=== PATIENT | female | born 1945 | race Caucasian/White ===

== ENCOUNTER 2016-11-22 10:41 | Inpatient (IN) | payer MEDICARE, BC ==
[~2016-11-22 10:41] MED LIST: ALBUTEROL SULFAT8 MG; AMBIEN5 M1 PO; AMLOPIDINE PO; ASPIRIN 32325 MG/TAB PO; ATHENOL325 MG PO; CALCIUM500 M1 PO; CLEOCIN HC150 MG/CAP PO; COLACE100 M1 PO; COREG3.125 M1 PO; COZAAR100 MG PO; COZAAR25 M1 PO; FISH OIL 1,2001 EACH PO; JANUVIA100 MG PO; LANTUS100 U/ML; LASIX20 M1 PO; LASIX40 M1 PO; LEVAQUIN 5500 MG/TA1 PO; LEVOTHYROXINE PO; LIPITOR 40MG TA40 MG PO; MAALOX ADVANCE148 ML PO; MIRALAX17 GM PO; MULTI-VITAMIN1 EACH PO; NITROGLYCERIN0.4 M1 SL; NORCO 325 MG-51 TA1 PO; PROTONIX TR40 M1 PO; ZAROXOLYN PO; ZOFRAN4 M2
[2016-11-22 13:13] VITALS: BP 172/81
[2016-11-22 13:37] VITALS: BP 172/81
--- NOTE | 2016-11-22 14:15 | NUR ---
Pt arrives with son and assisted by wheel chair to room 203. Oriented to room and given Swingbed admission packet. Pt alert and oriented. Rates pain 6/10 to left knee "I had to keep it bent the whole ride here" Pt is 1 assist with walker. Slow steady ambulation with walker. Bulky gauze dressing noted to left knee.
--- NOTE | 2016-11-22 14:26 | NUR ---
Dressing to left knee removed. Small amount of dried blood drainage to old dressing. Incision with 27 jeanine intact. Edges well approximated. Incision with 2 lidoderm patches to sides of incision. Pt reports these help greatly. Incision re covered with airstrip. Pt tolerates well.
--- NOTE | 2016-11-22 14:28 | NUR ---
J Angel Luis in to see pt at this time
[2016-11-22] MEDS ORDERED: FEROSUL325 M1 PO (14:47)
[2016-11-22] MEDS ORDERED: AMARYL1 M1 PO (14:51)
[2016-11-22] MEDS ORDERED: COZAAR25 M1 PO (14:51)
[2016-11-22] MEDS ORDERED: MAGNESIUM250 M1 PO (14:56)
--- NOTE | 2016-11-22 16:46 | NUR ---
Pt reports pain has went up despite [place] being on board and ice applied to knee. Pt requesting another pain pill. Pt has had car ride to hospital and worked with PT which she attributes to the extra pain. Gay MOTA notified and new order received.
[2016-11-22 18:19] VITALS: BP 140/60
[2016-11-22 18:50] VITALS: BP 140/60
--- NOTE | 2016-11-22 19:45 | NUR ---
Report received from Renetta DUNN. Patient rests in recliner with eyes closed. Awaken easily for assessment. States, oh that pain medicine put me asleep. States she isn't in pain but rates paiin 5/10. Pain scale explained to patient then rates 4/10. "it's not a 3." Denies need for a pain pill at this time. Legs elevated in recliner. DIANNA hose in place to BLE. Air strip intact with spotted drainage noted. Assessment compeleted. Call light in place.
--- NOTE | 2016-11-22 21:45 | NUR ---
Scheduled HS medications taken, PRN [place] given for L knee pain. Refused scheduled Ambien. States she has not been taking it at [place], and has been sleeping fine without it but wants it when she goes back home. Assisted to BR and with HS cares by GYROSCOPE REPAIRER. Skin inspected. Has fine, red area to lower back where she scratched, with one pin-point drop of blood, lotion applied. Also note large hemorrhoids to anal area, no bleeding noted. Assisted back to bed with weight rechecked per day nurse request and noted to be correct as to what day GYROSCOPE REPAIRER got. Assisted to recliner as patient prefers to sleep there. Pressure pad alarm in place. Call light in reach. Blood Sugar 190. Patient did have 1/2 package of sugarfree cookies prior to blood sugar being taken.
--- NOTE | 2016-11-23 01:35 | NUR ---
Marianne 7.5/325 1 tab given for L knee pain 05/26. Ice off at this time per request. Denies further wants or needs.
--- NOTE | 2016-11-23 04:06 | NUR ---
Awakens. Pain level back up to 7/10 to L knee. States the DIANNA hose is causing pain to be worse. Too early for analgesic. Utilziing ice bag. DIANNA hose remove from L leg at this time.
[2016-11-23 06:22] VITALS: BP 146/66
--- NOTE | 2016-11-23 06:30 | NUR ---
Scheduled AM medications and PRN [place] taken. Pain level 4-5/10. States pain better after DIANNA hose removed from surgical leg. Rests in recliner, denies wants or needs.
--- NOTE | 2016-11-23 07:17 | NUR ---
Report to Lisa DUNN
--- NOTE | 2016-11-23 07:20 | NUR ---
REPORT RECEIVED FROM ANDRE DUNN.
--- NOTE | 2016-11-23 07:20 | NUR ---
REPORT RECEIVED FROM CARISSA CASTELLON LPN
--- NOTE | 2016-11-23 07:34 | NUR ---
IV FLUIDS DISCONTINUED AT THIS TIME PER PHONE ORDER FROM DR WEEKS.
--- NOTE | 2016-11-23 07:40 | NUR ---
PATIENT AWAKE IN BED. REPORTS THAT SHE FEELS HUNGRY. SHE WOULD LIKE TO ADVANCE HER DIET. WILL TALK TO DR WEEKS ABOUT THIS SHE STILL FEELS NAUSEOUS IF SITTING UPRIGHT OR UP WALKING. INT INTACT TO LT HAND; APPEARS NORMAL. SHE DOES REPORT HEAD DISCOMFORT AT 2/10 TO RT FRONT OF HEAD. THIS RADIATES TO BACK RT OF HEAD INTERMITTENTLY. SHE DOES REPORT THAT HEAD PAIN AND DIZZINESS IS IMPROVED SINCE LAST NIGHT. CALL LIGHT IN REACH.
--- NOTE | 2016-11-23 08:00 | NUR ---
PATIENT UP TO RECLINER WITH LEGS ELEVATED. SHIFT ASSESSMENT COMPLETE. ALERT AND ORIENTED X4. REPORTS BEING TIRED THIS MORNING. STATES "NIGHT WAS OKAY, I DIDN'T SLEEP FOR A FEW HOURS" RATES PAIN 5/10 IN LEFT KNEE. PATIENT HAS AIRSTRIP TO LEFT KNEE WITH LIDOCAIN PATCH TO BOTH SIDES. NO REDNESS TO SKIN SURROUNDING DRESSING. PATIENT HAS SCAB TO LEFT JOHNSON. PATIENT REPORTS SCAB WAS THERE PRIOR TO SURGERY. PATIENT HAS REDNESS TO LEFT BACK OF CALF WITH SMALL AREA TO LEFT JOHNSON SURROUNDING SCAB. NO WARMTH TO AREA WITH PALPATION. PATIENT STATES "THAT'S A CHRONIC THING THE DOCTOR TOLD ME IT WOULD NEVER GO AWAY ITS FROM THE SWELLING" NO PAIN TO AREA. +2 PITTING EDEMA TO BILAT LOWER EXT. PATIENT HAS THIGH HIGH DIANNA HOSE IN PLACE TO RIGHT LOWER EXT. PATIENT REPORTS DIANNA HOSE ON LEFT LEG WAS CAUSING PAIN SO THEY TOOK IT OFF. PATIENT REPORTS LAST BOWEL MOVEMENT WAS 11/19/16 PRIOR TO SURGERY. REPORTS PASSING FLATUS. WHEN ASKED IF PATIENT WAS EXPERIENCING SHORTNESS OF BREATH STATES "NOT REALLY" WHEN ASKED TO EXPLAIN STATES "WELL I WAS HAVING SOME PHLEGM AND CONGESTION BUT IT'S GETTING BETTER" REPORTS THAT IT WAS WORSE AT NIGHT TIME BUT THAT IT'S IMPROVED. PATIENT'S CALL LIGHT WITHIN REACH. CHAIR ALARM ON.
--- NOTE | 2016-11-23 08:00 | NUR ---
PATIENT UP TO RECLINER WITH LEGS ELEVATED. SHIFT ASSESSMENT COMPLETE. ALERT AND ORIENTED X4. REPORTS BEING TIRED THIS MORNING. STATES "NIGHT WAS OKAY, I DIDN'T SLEEP FOR A FEW HOURS" RATES PAIN 5/10 IN LEFT KNEE. PATIENT HAS AIRSTRIP TO LEFT KNEE WITH LIDOCAIN PATCH TO BOTH SIDES. NO REDNESS TO SKIN SURROUNDING DRESSING. PATIENT HAS SCAB TO LEFT JOHNSON. PATIENT REPORTS SCAB WAS THERE PRIOR TO SURGERY. BELOW SCABBED AREA TO LEFT JOHNSON PATIENT HAS SMALL RAISED AREA APPROXIMATELY 0.25 CM X 0.25 CM. COLOR OF SKIN SURROUDING SCABS DARKER. PATIENT HAS REDNESS TO LEFT BACK OF CALF WITH SMALL AREA TO LEFT JOHNSON SURROUNDING SCAB. NO WARMTH TO AREA WITH PALPATION. PATIENT STATES "THAT'S A CHRONIC THING THE DOCTOR TOLD ME IT WOULD NEVER GO AWAY ITS FROM THE SWELLING" NO PAIN TO AREA.+2 PITTING EDEMA TO BILAT LOWER EXT. PATIENT HAS THIGH HIGH DIANNA HOSE IN PLACE TO RIGHT LOWER EXT. PATIENT REPORTS DIANNA HOSE ON LEFT LEG WAS CAUSING PAIN SO THEY TOOK IT OFF. PATIENT REPORTS LAST BOWEL MOVEMENT WAS 11/19/16 PRIOR TO SURGERY. REPORTS PASSING FLATUS. WHEN ASKED IF PATIENT WAS EXPERIENCING SHORTNESS OF BREATH STATES "NOT REALLY" WHEN ASKED TO EXPLAIN STATES "WELL I WAS HAVING SOME PHLEGM AND CONGESTION BUT IT'S GETTING BETTER" REPORTS THAT IT WAS WORSE AT NIGHT TIME BUT THAT IT'S IMPROVED. PATIENT'S CALL LIGHT WITHIN REACH. CHAIR ALARM ON.
--- NOTE | 2016-11-23 11:00 | NUR ---
PATIENT'S DRESSING TO LEFT KNEE AT THIS TIME. SCANT AMOUNT OF DRIED BLOOD TO OLD DRESSING. INCISION EDGES WELL APPROXIMATED. ROEL INTACT. INCISION FREE FROM SIGNS OF INFECTION AT THIS TIME. INICISION CLEANSED. SKIN PREP APPLIED. CLEAN AIRSTRIP APPLIED TO INCISION WITH LIDOCAIN PATCH TO EACH SIDE OF INCISION. PATIENT'S LEGS ELEVATED IN RECLINER. CALL LIGHT WITHIN REACH. CHAIR ALARM ON.
[2016-11-23 18:30] VITALS: BP 142/58
--- NOTE | 2016-11-23 19:20 | NUR ---
report given to kathi terrellrn
[2016-11-24 06:21] VITALS: BP 171/79
--- NOTE | 2016-11-24 07:20 | NUR ---
REPORT RECEIVED FROM Gay STORYRN
--- NOTE | 2016-11-24 08:00 | NUR ---
patient's shift assessment complete. patient up to recliner. reports having pain rated 6/10 to left knee. reported that patient did not sleep well last night. patient's last bowel movement 1/3. abdomen firm and non tender upon palpation. per patient's report passing flatus. patient's airstrip to left knee small amount of drainage noted to dressing. patient's bilat lower ext +2 pitting edema. left more edematous than right. scabs to left lopez. skin below scabs has raised area that appears to be filled with dark yellow serous colored fluid. area larger than yesterday, approximately 0.5 cm x 1 cm. surrounding skin continues to be darker in color. skin to left lower ext pink this morning continues to have redened area to back of calf. patient's call light within reach.
--- NOTE | 2016-11-24 08:00 | NUR ---
patient's shift assessment complete. patient up to recliner. reports having pain rated 6/10 to left knee. reported that patient did not sleep well last night. patient's last bowel movement 1/3. abdomen firm and non tender upon palpation. per patient's report passing flatus. patient's airstrip to left knee small amount of drainage noted to dressing. patient's bilat lower ext +2 pitting edema. left more edematous than right. scabs to left lopez. skin below scabs has raised area that appears to be filled with dark yellow serous colored fluid. area larger than yesterday, approximately 0.5 cm x 1 cm. surrounding skin continues to be darker in color. skin from around ankle to knee appears to be slightly more reddened than when this nurse cared for patient yesterday. area does not feel warmer than surrounding skin. continues to have redened area to back of calf, unchanged from previous assessment. patient's call light within reach.
--- NOTE | 2016-11-24 16:00 | NUR ---
patient asked to ambulate in [place]. patient walks to room doorway with walker. standby assist of 1 required. AUTO BODY REPAIRER asked patient if she would walk further and go to nurses station and back as she has been doing in previous walks. patient refused. states "i already walked in the [place] earlier, i will walk later tonight before bedtime it helps me sleep"
--- NOTE | 2016-11-24 17:22 | NUR ---
dr. horn at patient's bedside to look at left lower ext. this nurse in room. aspirated scant amount of bright blood tinged drainage from fluid filled raised area to left lopez. wound culture sent to lab. area covered with gauze and carloz wrap applied to left lower ext by . instructed patient to ambulate in halls more frequently with staff. patient agreeable.
[2016-11-24 18:30] VITALS: BP 163/64
--- NOTE | 2016-11-24 19:23 | NUR ---
report given to kathi terrellrn
[2016-11-25 06:55] VITALS: BP 161/78
--- NOTE | 2016-11-25 07:10 | NUR ---
REPORT RECEIVED FROM Gay STORYRN
--- NOTE | 2016-11-25 08:00 | NUR ---
PATIENT'S SHIFT ASSESSMENT COMPLETE. PATIENT ALERT AND ORIENTED X4. REPORTS HAVING PAIN RATED 8/10 IN LEFT KNEE. REQUESTED PRN PAIN MEDICATION. REPORTS LEG FEELS "MORE STIFF" TODAY. PATIENT HAS GAUZE TO LEFT JOHNSON ABRASION WITH LEG WRAPPED TO LEFT KNEE WITH ROSELYN WRAP. AIRSTRIP TO LEFT KNEE HAS SMALL AMOUNT OF DRAINAGE ON IT. ROSELYN WRAP REMOVED FROM LEFT LOWER EXT TO ASSESS SKIN. SCABBED AREA TO LEFT JOHNSON WITH BLISTER BELOW IT UNCHANGED FROM YESTERDAY. IMMEDIATE SURROUNDING SKIN APPEARS TO BE A DARKER RED THAN YESTERDAY BUT IS NOT INCREASED IN SIZE FROM YESTERDAY. SKIN FROM AROUND ANKLE TO KNEE DARKER RED THAN YESTERDAY AND IS WARM TO TOUCH WITH SKIN FROM KNEE TO MID THIGH MORE PINK COLORED. GAUZE IN PLACE TO JOHNSON AND LEG ROSELYN WRAP REAPPLIED. PATIENT'S CALL LIGHT WITHIN REACH. CHAIR ALARM ON.
--- NOTE | 2016-11-25 08:00 | NUR ---
PATIENT'S SHIFT ASSESSMENT COMPLETE. PATIENT ALERT AND ORIENTED X4. REPORTS HAVING PAIN RATED 8/10 IN LEFT KNEE. REQUESTED PRN PAIN MEDICATION. REPORTS LEG FEELS "MORE STIFF" TODAY. PATIENT HAS GAUZE TO LEFT JOHNSON ABRASION WITH LEG WRAPPED TO LEFT KNEE WITH ROSELYN WRAP. AIRSTRIP TO LEFT KNEE HAS SMALL AMOUNT OF DRAINAGE ON IT. ROSELYN WRAP REMOVED FROM LEFT LOWER EXT TO ASSESS SKIN. SCABBED AREA TO LEFT JOHNSON WITH BLISTER BELOW IT UNCHANGED FROM YESTERDAY. IMMEDIATE SURROUNDING SKIN APPEARS TO BE A DARKER RED THAN YESTERDAY BUT IS NOT INCREASED IN SIZE FROM YESTERDAY. SKIN FROM AROUND ANKLE TO KNEE DARKER RED THAN YESTERDAY AND IS WARM TO TOUCH WITH SKIN FROM KNEE TO MID THIGH MORE PINK COLORED. GAUZE IN PLACE TO JOHNSON AND LEG ROSELYN WRAP REAPPLIED. NOTED SWELLING TO BILAT LOWER EXT APPEARS TO BE SLIGHTLY DECREASED FROM YESTERDAY. PATIENT EDUCATEED PATIENT REFUSED ICE TO LEG. PATIENT'S CALL LIGHT WITHIN REACH. CHAIR ALARM ON.
--- NOTE | 2016-11-25 09:20 | NUR ---
PABLO IBANEZ APRN IN TO SEE PATIENT AND LOOK AT LEFT LEG. PLAN IS FOR PATIENT TO START ON KEFLEX ORAL. WILL CONTINUE TO MONITOR.
--- NOTE | 2016-11-25 10:30 | NUR ---
PHYSICAL THERAPY VOICES CONCERN ABOUT PATIENT'S LEFT LEG BEING STIFFER THAN IT WAS ON FRIDAY AND HER DECREASE IN ABILITY TO MOVE LEG. GUI SHAH NOTIFIED AND ULTRA SOUND OF EXT FOR DVT ORDERED. WILL CONTINUE TO MONITOR.
[2016-11-25 18:25] VITALS: BP 163/68
--- NOTE | 2016-11-25 19:30 | NUR ---
REPORT GIVEN TO Johnathan BENTLEY RN
--- NOTE | 2016-11-25 19:50 | NUR ---
Shift assessment documented and completed at this time. Pt SBA to BR. voided, no BM; is passing gas. Pt rates pain 5/10 aching to LLE, denies need for medication. Airstrip C/D/I. Pt states abdomen is becoming more uncomfortable. Discussed medication options. R buttock blister; mepilex applied and cushion to chair for comfort and protection from breakdown. LLE red, warm, wrapped with ROSELYN. Pulses palpable. Wesley hose on RLE. Pt returned to chair with BLE elevated. Chair locked, call light within reach. No further needs at this time.
[2016-11-26 06:16] VITALS: BP 149/69
--- NOTE | 2016-11-26 07:15 | NUR ---
report from Lisa Asif RN
--- NOTE | 2016-11-26 09:32 | NUR ---
awake, alert, up in chair at bedside, describes pain 3/10 but does not want pain medication, encouraged flexion/extension of all joints, ice pack applied to surgical site, this area remains very warm to touch, reddened, and edematous, jakob to right leg,
--- NOTE | 2016-11-26 14:17 | NUR ---
at approx 1330 patient described feeling short of breath and gernerally not feeling well, refusing therapy, oral temp 97.0, spo2 97% on room air, there is good aeration noted with auscultation, she then requests adding a laxative and we discussed her not wanting this ams dose of Miralax, I told her we can give the Miralax and I would notifiy the provider of her c/o, this is done and Gay Hein PA-c is currently at patients bedside.
--- NOTE | 2016-11-26 14:45 | NUR ---
patient is given an additional dose of Miralax and Lasix per order, sheis placed in a gown, her bra is removed and she is readied for an x-ray, lab at bedside
--- NOTE | 2016-11-26 15:21 | NUR ---
to x-ray per w/c
--- NOTE | 2016-11-26 15:29 | NUR ---
returns to room per w/c from x-ray
--- NOTE | 2016-11-26 15:49 | NUR ---
provider visits with patient about lab/x-ray results
--- NOTE | 2016-11-26 16:07 | NUR ---
Pt is in bed, not feeling well. She has not had a good BM since she came to [facility], pt has been refusing stool softeners and on this date provider speaks to her explaining that she must not refuse the laxatives that are now ordered or she will have an emergent problem, pt verbalizes understanding. Juliet Duque, RN, Pt Navigator for [facility] visits pt and goes over pt discharge plans. Pt anticipates returning to home on 12-02-16. She has an appointment w/ Dr Moncada on 12-02-16 @ 2:00 for which she states that her son Corey will be able to take her home and take her to this appointment. She would appreciate [facility] transportation to Dr Randolph's office, but the bus only runs on the and the . Dr Randolph's office is notified and new appointment given for 12-12-16 @ 1:00, pt to see SVETLANA Chicas at [address] [place] [address] - [phone]. Dr Randolph's nurse Nhi [place] RN gives new order that pt may have jeanine removed on either 11-29 or 11-30 if wound is clean and dry and incision is well approximated. She states that Dr Randolph would rather jeanine be removed in facility prior to her discharge and that they can be removed on either Friday or Fri and steri strips are to be applied afterwards. SVETLANA Hernandez is notified, as is nursing of above information. appointment change requested. If pt cannot get there until the , it is requested of Dr Randolph that [facility] provider be able to remove jeanine prior to her discharge on the , and [facility] will also o
[2016-11-26 18:17] VITALS: BP 143/65
--- NOTE | 2016-11-26 18:50 | NUR ---
report to Coty LANDRUM
--- NOTE | 2016-11-26 19:24 | NUR ---
Report received from Ayala DUNN. Patient sitting up in recliner. A/O x4. Rates pain to L knee 04/26. Ice bag applied. Air strip dressing CDI. Leg remains red, warm below. Legs elevated. Assessement completed. Denies wants or needs. Uses I.S. with COLLISION REPAIR TECHNICIAN's prompting.
--- NOTE | 2016-11-26 20:50 | NUR ---
Scheduled HS medications taken. Wants to wait until closer to bed for Ambien but willing to take tonight.
--- NOTE | 2016-11-26 22:25 | NUR ---
Assisted to BR, voids 300 ML of dark yellow urine, assisted to bed, takes Ambien at this time per request. Denies need for anlagesic. "I made need it once I get settled in, but not right now". Requests and given chelsea amaya, sits on EOB to eat, JIG BORE TOOL MAKER in room with her while she eats. Denies further wants or needs.
--- NOTE | 2016-11-27 00:30 | NUR ---
Awaken for scheduled antibiotic. Takes without difficulty. Denies pain or need for analgesic. Falls back asleep before nurse leaves room.
--- NOTE | 2016-11-27 03:15 | NUR ---
Up to BR with assist. Rates pain to L knee 12/27. Denies need for analgesic. Assisted back to bed. Bed alarm on. Call light in reach.
--- NOTE | 2016-11-27 06:10 | NUR ---
Up in chair. Scheduled AM medications taken. [place] given for pain to L knee 04/26. Rested well all shift. No BM. Weight elevated from yesterday. Bed re-zeroed and rechecked and weighed the same. Denies wants or needs.
[2016-11-27 06:20] VITALS: BP 150/60
--- NOTE | 2016-11-27 07:05 | NUR ---
Report to Mouna DUNN
--- NOTE | 2016-11-27 08:00 | NUR ---
Complex assesment completed at this time, airstrip to left knee, will replace this shift shortly, noted redness to LLE, pt states this is her "norm" and that a previous physician has told her it will be red for the rest of her life, increased edema to BLE and BUE (2+), difficult to find IV placement but after 3 attempts IV was placed in patients right hand by Renetta Sheppard, RN, pt denies increased SOB, refuses lidocaine patches and states they do not help her, further assessment completed, VSS, pt alert and oriented, denies further needs, call light is within reach, and chair alarm on
--- NOTE | 2016-11-27 08:10 | NUR ---
Pt's Potassium elevated to 6.1 today, Iris Hein notified, orders to start and IV we are going to run 1L of NS slowly as well as give an additional dose of IV Lasix with this AM's dose of PO Lasix, due to increased CHF exacerbation and edema, as well as possible kidney disfunction patient may need to transfer back to [place] in the next 1-2 days if we can not get patients labs stabilized, patient notified of these changes this AM and compliant, pt still has not had a BM, took all of her PO meds this AM to assist in this, states she feels if she gets up and moving more today she will have a BM, discussed a possible enema with patient, pt does not disagree but would like more time this AM to achieve a stool without an enema, will continue to monitor I/O and administer new meds as ordered after IV placement
--- NOTE | 2016-11-27 11:02 | NUR ---
Pt states that she has all the equipment she will need at home. She chooses [facility] for recommended services of SN/PT/OT/BathAide for anticipated discharge date on 12-02-16 providing her condition is improved enough for discharge. [facility] is notified of pt need for transportation to see Dr Celso Randolph on 12-12-16 @ 3:20, bus will pick her up at her home at 2:15pm. [facility] is notified of pt choice and HH field representative/health education will come and visit w/ pt re: HH benefits today. Pt is aware and in agreement w/ all of above info.
--- NOTE | 2016-11-27 11:35 | NUR ---
F/U appointment with scheduled for 12/12/16 @ 1520, Donald little will pick pt up at 1415. Pt also has a f/u scheduled with for 12/02/16 @ 1400, pt reports her son will take her to this appointment after DC from hospital
--- NOTE | 2016-11-27 13:11 | NUR ---
and Eze at bedside at this time discussing current health status and increased edema and well as lab results, orders to hold the 1400 dose of Lasix, recheck labs at 1500 as ordered, carloz wrap legs BID for at least 30 minutes or as long as tolerated, and for patient to get in bed while legs are carloz wrapped and significantly elevate legs above the level of the heart, not concerned at this time about transferring patient, will continue to monitor labs and current health status
--- NOTE | 2016-11-27 13:45 | NUR ---
One time dose of Dulcolax PO given at this time per patient request, states this helps her bowels at home, also DC'd scheduled Toradol in hopes to improve renal function, will continue to monitor for a BM throughout this shift, discussing and enema at this time if patient has no results shortly
--- NOTE | 2016-11-27 15:30 | NUR ---
Pt resting in bed, legs elevated, ice applied to left knee, BLE carloz wrapped to help with edema, will leave legs elevated and wrapped until at least 1600 as ordered by , patient comfortable with call light within reach, denies further needs at this time
--- NOTE | 2016-11-27 15:45 | NUR ---
Noted bruising to left outer thigh from surgery, will continue to monitor for increase in bruising and swelling, denies pain at this site
--- NOTE | 2016-11-27 16:39 | NUR ---
Pt offered PRN pain medication at this time again, denies the need, states "my knee feels fine when I rest it", states she will notify staff when she feels the need for pain medication, offered after working with therapy multiple times as well as patient states "No thanks, I will be fine once I rest here for a few minutes.", will continue to offer pain control and manage patients pain to the best of my ability
--- NOTE | 2016-11-27 17:14 | NUR ---
Glucophage DC'd at this time due to low blood sugar levels this shift, also did not give this evenings dose of Glimepiride per Eze, will continue to monitor BG levels, pt states she is unable to eat a lot at mealtime due to constipation, we are going to go on a walk one more time after supper and see if any BM results, if not we will proceed with more aggressive measures
--- NOTE | 2016-11-27 17:38 | NUR ---
Pt up on stool at this times, states she wants to attempt to have a BM at this time and will sit there for a little while, after this she requests 1 more walk to try and get things moving, states she is passing gas now, after the walk she agreed to an enema if no results yet, also she states she is a bit hesitant and would like to avoid it as "this will be a very new experience for me," this nurse educated on the procedure of adminstering an enema and patient seems calm and in agreeance if needed
--- NOTE | 2016-11-27 18:13 | NUR ---
Pt agreeing to milk and molasses enema as verbally ordered by Eze this afternoon at this time, will scan order to pharmacy and prepare enema and administer at this time
[2016-11-27 18:32] VITALS: BP 176/64
[2016-11-28 06:29] VITALS: BP 119/47
--- NOTE | 2016-11-28 07:10 | NUR ---
report from February RN
--- NOTE | 2016-11-28 09:33 | NUR ---
up in chair this am for breakfast, states has moderate amount of pain in left knee and feels she slept wrong last noc, encourqged to position self in a normal position and if it is uncomfortable shift self to help in relieving pain, ice pack applied, ther remains a moderate amount of edema to left leg, both above and below the incision site, she also states her lef will remain red and thisis a very normal appearance for her
--- NOTE | 2016-11-28 11:19 | NUR ---
re-weighed per dietary request 214.5lbs
--- NOTE | 2016-11-28 11:20 | NUR ---
to bed, re-weighed and leg wraps applied, using Elias wrap applied ankle to above knee, both legs are then elevated above level of her heart
--- NOTE | 2016-11-28 12:03 | NUR ---
leg wraps removed and pillows removed, patient takes lunch
--- NOTE | 2016-11-28 14:05 | NUR ---
patients son visits,
--- NOTE | 2016-11-28 15:15 | NUR ---
labs drawn at bedside
--- NOTE | 2016-11-28 15:21 | NUR ---
patient s current iv site shows leaking, site dc'd, there was approx 75ml remaining in NS infusion, this was wasted
[2016-11-28 18:31] VITALS: BP 138/52
--- NOTE | 2016-11-28 19:19 | NUR ---
report to margot DUNN
--- NOTE | 2016-11-28 20:00 | NUR ---
Patient is in bed with legs elevated. She denies needs at this time. call light in reach. Patient states she is at a 4/10 on pain scale and that is tolerable.
--- NOTE | 2016-11-29 00:06 | NUR ---
Patient requested PRN pain medication rating pain 5/10 on pain scale. Stated that her pain is mainly in the lower extremeties and on left lower mostly. Patient has had legs wrapped with carloz bandages and now had them removed. She was up to bathroom with stand by assist with staff. No other needs verbalized at this time. call light in reach.
--- NOTE | 2016-11-29 06:11 | NUR ---
Patient rested throughout night, BRP with stand by assist with staff and patient tolerated well. denies any other needs, call light in reach.
[2016-11-29 06:33] VITALS: BP 188/90
--- NOTE | 2016-11-29 06:55 | NUR ---
Report received from SHAUN High.
--- NOTE | 2016-11-29 07:30 | NUR ---
Assessment completed. Noted redness to left leg that is not new. Patient reports it as chronic after cellulitis in the past. Bruising noted to left forearm and left elbow area from prior IV's and lab draws. Pt reports aching left leg, rating at a 5. Denied a need for pain medication at this time.
--- NOTE | 2016-11-29 07:45 | NUR ---
Iris Hein PA-C in to see patient. Plans to remove some or all jeanine later this afternoon when therapy is completed. Noted decreased swelling and lungs sounds are good.
[2016-11-29] MEDS ORDERED: NORCO 325 MG-7.1 TA1 PO (12:23)
--- NOTE | 2016-11-29 14:08 | NUR ---
Iris Hein PA-C in room. Removed 12 jeanine. Count of 14 remaining. Steri strips applied.
--- NOTE | 2016-11-29 14:28 | NUR ---
Spoke with Iris Hein PA-C. Ok to leave left knee jeanine with steri strips open to air without an airstrip. Rest of jeanine to be removed over the weekend.
--- NOTE | 2016-11-29 16:36 | NUR ---
Pt anticipates discharge to home on 12-02-16. [facility] has pt records and F2F Order. Pt will sign BIPA form on 11-30-16. Pt is agreeable w/ discharge plan.
--- NOTE | 2016-11-29 18:35 | NUR ---
Report given to LUCITA Ansari. Pt resting in chair with left leg elevated on pillow.
[2016-11-29 18:51] VITALS: BP 157/60
--- NOTE | 2016-11-29 21:03 | NUR ---
Report received from Renetta Hennessy RN. Patient sitting up in chair watching TV. A/Ox 4. Rates pain 6/10. Denies need for analgesic. Offered and refuses ice. L knee incision MIN, with 1/2 jeanine removed, steri-strips intact. Uses I.S. with nurse encouragement, pulls 750 ML x10. Takes scheuled HS medications excepept Ambien. Wants it later when goes to bed. Will wrap LLE when goes to bed. Assessment completed. Requests HS snack. Will provide after accucheck. Call light in reach.
--- NOTE | 2016-11-29 22:15 | NUR ---
Patient ready for bed. Mepilex place on abrasion to right buttock for protection, states area is "sore". Assisted to bed and takes Ambien at this time. Continues to deny need for analgesic. L leg wrapped with Elias bandage at this time for 30 minutes per order and leg elevated. Bed alarm on. Call light in reach. Denies wants or needs.
--- NOTE | 2016-11-30 00:41 | NUR ---
Up to BR with assist. Voids 300 ML of clear yellow urine. Assisted back to bed. Galvin 1 tab given for pain to L knee 03/26. Bed alarm on. Call light in reach.
--- NOTE | 2016-11-30 01:00 | NUR ---
Order received to straight cath with cox and if significant output then leave in place. Only 120 cc output noted, so not left in place at this time. Patient remains restless and wanting to get out of bed sometimes to void and some times not.
--- NOTE | 2016-11-30 04:18 | NUR ---
Rests with eyes closed. No signs of pain or distress.
--- NOTE | 2016-11-30 06:15 | NUR ---
Up to BR with assist. Back to bed. Denies need for analgesic. Scheduled AM medication taken. Bed alarm on. Call light in reach. Denies wants or needs.
[2016-11-30 06:24] VITALS: BP 163/75
--- NOTE | 2016-11-30 07:03 | NUR ---
Report to Renetta DUNN
--- NOTE | 2016-11-30 09:45 | NUR ---
Pt sitting up in chair. BLE elevated. Left knee with every other staple out with steri strips. Oter jeanine intact with edges well approximated. Leg remains reddened as pt reports this is her normal. Bruising to posterior knee. +2 BLE edema. Pt rates pain 4/10 and states " That it feels pretty good right now" Refuses offer of ice. Ice encouraged after next walk in hallway
--- NOTE | 2016-11-30 12:30 | NUR ---
pt sitting in chair. no needs at this time. call light in reach.
[2016-11-30 18:41] VITALS: BP 158/70
--- NOTE | 2016-11-30 20:15 | NUR ---
Report received from Lina DUNN. Patient sitting up in chair, A/O x4. Rates pain 4/10 to left knee at rest, jumps to 5-6 with movement. 1/2 jeanine intact to L knee incision and Steri-strips intact to other 1/2, MIN. Utilizing ice. Assessment completed. Up to BR and voids 300 ML of clear yellow urine. Dressing to R buttock abrasion rolled up, removed and new mepilex dressing replaced. Assisted back to chair. Legs elevated. Denies wants or needs.
--- NOTE | 2016-11-30 22:35 | NUR ---
Scheduled HS medications taken now. LLE wrapped and elevated x 30 min. Takes Ambien but denies need for analgesic. Assisted to BR and back to bed. Bed alarm on. Call light in reach.
--- NOTE | 2016-12-01 00:51 | NUR ---
Elliott 1 tab given for pain to L knee 05/26. Up to BR with assist. Voids 200 ML of urine. Assisted back to bed with bed alarm on. Call light in reach.
[2016-12-01 06:17] VITALS: BP 180/86
--- NOTE | 2016-12-01 06:25 | NUR ---
Awake, watching TV. Denies need for analgesic. Scheduled AM medications taken. Denies wants or needs. Bed alarm on. Call light in reach.
--- NOTE | 2016-12-01 07:09 | NUR ---
Report to Renetta Hennessy RN
--- NOTE | 2016-12-01 07:15 | NUR ---
Assessment completed. Pt reports pain in left leg rated 7/10. States it just started aching. 14 jeanine remaining, intact and normal. Will remind Dr. Suarez of the need to remove them today for discharge tomorrow.
--- NOTE | 2016-12-01 07:50 | NUR ---
Report received from LUCITA Ansari.
--- NOTE | 2016-12-01 10:05 | NUR ---
Observed patient getting dressed by herself. She was able to utilize her grabber and completely dress herself with bra, shirt, and shorts without any issues. No loss of balance observed.
--- NOTE | 2016-12-01 13:20 | NUR ---
Report recieved from SHAUN Jackson. Pt currently sitting up in chair sleeping. No distress seen. Will cont to monitor.
--- NOTE | 2016-12-01 15:00 | NUR ---
Dr Suarez at bedside and removed rest of jeanine. Pt andriy well. Steri strips inplace from when 1/[address] did not add any more steri strips. Pt denies any other needs at this time.
--- NOTE | 2016-12-01 17:46 | NUR ---
End of shift note: No changes in pt's condition since asuming care at 1300. Pt medicated for pain x1. Pt has also been up and ambulating on her own. Pt has up ad ky orders. Left leg carloz wrapped for 30 min to help with swelling as ordered. Pt andriy well. Pt denies any needs at this time. Will cont to monitor.
[2016-12-01 18:08] VITALS: BP 181/77
--- NOTE | 2016-12-01 19:16 | NUR ---
Report given to SHAUN Ansari and care transfered.
--- NOTE | 2016-12-01 19:50 | NUR ---
Report received from Lina DUNN. Patient sitting up in recliner with legs elevated. A/O x4. Rates pain to L knee 4/10. States increases to 5-6/10. when up ambulating. Assessment completed. L leg MIN with jeanine out, steri-strips in place. Patient is now up ad-ky with Dr. fierro. States that she has been ambulating in room and out of room as well on her own. Reports that she feels steady when walking. Talked to patient about safety and advised if she did not feel safe to ask for assist. Also spoke with her that at night this nurse would feel better for her safety that we helped her up to BR and apply bed alarm after she has had her Ambien and pain medication. Explained she is at risk for increased fall risk at night with medications in system and being in a different place and for her safety I would prefer to assist her so she is able to discharge home tomorrow. Patient is agreeable to this plan. Up to BR now and is going to ambulate then would like a pain pill. Observed using walker to pull self up out of chair. Patient, educated on pushing self up from chair vs using walker to pull self up. States she knows this put that the chair moves and that it scares her. While patient is up the chair is inspected and noted that the brakes are on but that the front does indeed move. CAREER AND GUIDANCE COUNSELOR to speak to maintenance mechanic millwright who is in house at this time. Chair changed out with a new one at this time. Patient ambulates ab-ky to ER waiting area and back without difficulty. Sits back in recliner, Legs elevated.
--- NOTE | 2016-12-01 23:00 | NUR ---
Dozing in recliner, awaken by nurse. Ambulates ad-ky to BR. Voids. Gets self into bed. L leg elevated on pillow. Takes PO Ambien now. Bed alarm applied. Call light in reach. Denies further wants or needs.
--- NOTE | 2016-12-02 03:58 | NUR ---
Up to BR with assist. Rates pain 7/10 to L knee. Ice pack applied. [place] given. Eating a banana and request milk, tea or sprite to drink.
--- NOTE | 2016-12-02 04:07 | NUR ---
Rests with eyes closed. No signs of pain or distress.
[2016-12-02 06:23] VITALS: BP 149/63
--- NOTE | 2016-12-02 06:24 | NUR ---
Awaken for scheduled AM medication. Takes without difficulty. Denies wants or needs at this time. Bed alarm on. Call light in reach.
--- NOTE | 2016-12-02 07:05 | NUR ---
Report to Polina DUNN
--- NOTE | 2016-12-02 08:00 | NUR ---
Report received from Jorge A Coreas LPN. Shift assessment documented and completed at this time. Pt resting in chair with BLE elevated. Steri strips over incision; well approximated. Requests carloz wrap to LLE and to return to bed to elevate. Leg wrapped per order and elevated with two pillows above heart. Pt states she is ambulating well with walker and non skid socks. Pain 4/10 to LLE; described as aching. Denies need for intervention. Pt is ready to discharge today. No further needs at this time.
--- NOTE | 2016-12-02 11:30 | NUR ---
Pt has signed BIPA form on Friday11-30-15 and is in agreement w/ discharge to home on this date. She will call her son to come and get her at 1:30 so that she can leave in time to go to her F/U visit w/ PCP, Dr Moncada. Home Health is faxed her discharge packet, and they are asked to call her after she gets home from her Dr Moncada appointment and let her know at what time they will admit her. Pt is aware that plans to admit her on 12-03-[address] Randolph appt has been changed to 12-12-16 since he gave an order for her jeanine to be taken out at [facility] prior to DC. [employer] bus transportation is scheduled to pick pt up for her Dr Randolph appt on 12-12-16. Pt is in agreement and has no further questions.
--- NOTE | 2016-12-02 13:48 | NUR ---
Pt discharged per order home with home health and family support. Discharge instructions given to family and patient. Paper presciption given to pt's son. Belongings packed by patient. Discharge via wheelchair through ED doors. Seat belt applied to pt. No further needs; all questions answered.
== END 2016-12-02 13:48 | disposition home health service (06) | DRG 560 ==
LOC: MED/SURG 10:41
PROVIDERS: ADMIT Physician Assistant
DX: Z47.1 Aftercare following joint replacement surgery (principal); I50.32 Chronic diastolic (congestive) heart failure; Z96.652 Presence of left artificial knee joint; H66.92 Otitis media, unspecified, left ear; J06.9 Acute upper respiratory infection, unspecified; R23.8 Other skin changes; N28.9 Disorder of kidney and ureter, unspecified; E87.5 Hyperkalemia; K59.00 Constipation, unspecified; R60.9 Edema, unspecified; I25.10 Atherosclerotic heart disease of native coronary artery without angina pectoris; I11.0 Hypertensive heart disease with heart failure; E11.9 Type 2 diabetes mellitus without complications; M19.90 Unspecified osteoarthritis, unspecified site; T50.905A Adverse effect of unspecified drugs, medicaments and biological substances, initial encounter; Z79.82 Long term (current) use of aspirin; Z79.84 Long term (current) use of oral hypoglycemic drugs
CPT/HCPCS: A4649; J1940; J7030

== ENCOUNTER → 2017-02-13 | Outpatient (CLI) | payer MEDICARE, BC ==
[~2017-02-13] MED LIST changes: +AMARYL1 M1 PO; +FEROSUL325 M1 PO; +MAGNESIUM250 M1 PO; +NORCO 325 MG-7.1 TA1 PO
== END ==
LOC: RAD 11:44
DX: R31.0 Gross hematuria (principal); K86.9 Disease of pancreas, unspecified; N20.0 Calculus of kidney; K80.80 Other cholelithiasis without obstruction; K44.9 Diaphragmatic hernia without obstruction or gangrene; K57.30 Diverticulosis of large intestine without perforation or abscess without bleeding; J90 Pleural effusion, not elsewhere classified; I51.7 Cardiomegaly
CPT/HCPCS: Q9967

== ENCOUNTER 2017-04-08 13:00 | Outpatient (RCR) | payer MEDICARE, BC | END 2017-07-07 | disposition home or self-care (01) | LOC: CARDREHAB | DX: I50.9 Heart failure, unspecified (principal) ==

== ENCOUNTER 2017-07-10 15:36 | Outpatient (RCR) | payer MEDICARE, BC | END 2017-10-08 | disposition home or self-care (01) | LOC: CARDREHAB | DX: I50.9 Heart failure, unspecified (principal) ==

== ENCOUNTER → 2017-07-10 | Outpatient (CLI) | payer MEDICARE, BC | LOC: RAD 05-26 11:00 → VAS 16:47 | DX: I50.22 Chronic systolic (congestive) heart failure (principal); I34.0 Nonrheumatic mitral (valve) insufficiency; I07.1 Rheumatic tricuspid insufficiency; I51.7 Cardiomegaly; I25.119 Atherosclerotic heart disease of native coronary artery with unspecified angina pectoris; R60.9 Edema, unspecified ==

== ENCOUNTER 2017-12-08 10:00 | Outpatient (RCR) | payer MEDICARE, BC | END 2018-01-01 14:23 | disposition home or self-care (01) | LOC: CARDREHAB 10:00 | DX: I50.9 Heart failure, unspecified (principal) ==